=== PATIENT | female | born 1945 ===

== ENCOUNTER → 2019-05-26 | Outpatient (CLI) | payer MEDICARE, BC ==
[2019-05-26 14:00] LABS: HEMOGLOBIN A1C 5.9 % (4.5-6.2)
--- NOTE | 2019-05-28 10:42 | CT ---
INDICATION: Left lower quadrant pain times two weeks, lack of appetite. CT ABDOMEN AND PELVIS WITHOUT CONTRAST: Spiral 2.5 mm axial sections were obtained through the abdomen and pelvis, 05/26/19, with sagittal and coronal reconstructions, no contrast, and compared with 11/04/17. Total exam DLP = 2, 341.14 mGy-cm. An active infiltrate or effusion was not identified in the lower lung luis and pleural spaces visualized. There is some minimal scarring at the lingula and medial anterior middle lobe. The heart did not appear enlarged. No pericardial effusion was seen. There are again noted multiple calculi in the gallbladder without definite evidence of acute cholecystitis. The biliary tree was not dilated. The liver was fairly normal in appearance, except to note a small low density lesion in the left lobe, compatible with a benign cystic structure. The adrenal glands showed evidence of a stable small nodular lesion, most likely benign, since it does appear to be stable compared with a year ago. Scarring is noted of the left kidney, most severe in the posterior upper pole cortex. A mild degree of renal calcinosis is noted with a moderate sized calculus in the lower pole of the left kidney. A small nodular density off the lateral posterior cortex of the left kidney is suggested similar to the previous examination, with similar densities noted on the right at the mid pole. No definite obstructive uropathy was seen. The spleen appeared unremarkable. The pancreas appears to be slightly fatty replaced with some calcification, which appears to be within the splenic artery. Aortic calcifications are noted with proximal renal artery calcifications, superior mesenteric, iliac, and femoral artery calcifications. Thickening of the wall of the urinary bladder was noted, perhaps emphasized by lack of full distention. However, with the degree of thickening present, the likelihood of cystitis is felt to be high. The appendix appeared normal, visualized on axial images #99 through #108 - no evidence of appendicitis is noted. No evidence of free air or bowel obstruction was seen. No retroperitoneal mass was seen. A tiny umbilical hernia is noted, slightly increased in size compared with the previous study and including only fat. Multiple phleboliths are noted in the pelvis. No additional mass lesions organomegaly, or free fluid collections were identified in the abdomen or pelvis. IMPRESSION: 1. Minimal pulmonary fibrosis. 2. Cholelithiasis without definite cholecystitis. 3. ASD with fairly extensive arterial calcifications. At the iliac bifurcation , there is a bulge of the aorta to a maximum of approximately 29 mm - just under aneurysmal dilatation level. 4. Normal appearing appendix. 5. Significant thickening of the urinary bladder wall, most likely on the basis of cystitis and should be correlated clinically. 6. 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 7. Renal cortical scarring on the left, mostly at the lower pole but also in the upper pole on the left with calcification in the lower pole of the kidney, most likely dystrophic from previous infarct or infection at the lower pole. 8. Tiny nodular appearing densities at the kidneys, most likely benign. 9. Osteoarthritic changes with significant craniolateral joint space loss at the hip joints bilaterally, perhaps slightly more severe on the right than left. MTDD
== END ==
LOC: FB.CLBR 12:43
PROVIDERS: ATTEND Nurse Practitioner Family
DX: E11.9 Type 2 diabetes mellitus without complications (principal); R10.32 Left lower quadrant pain; J84.10 Pulmonary fibrosis, unspecified; K80.20 Calculus of gallbladder without cholecystitis without obstruction; Q21.1 Atrial septal defect; N32.89 Other specified disorders of bladder; N28.89 Other specified disorders of kidney and ureter; M16.0 Bilateral primary osteoarthritis of hip; R93.1 Abnormal findings on diagnostic imaging of heart and coronary circulation; I70.0 Atherosclerosis of aorta; M47.815 Spondylosis without myelopathy or radiculopathy, thoracolumbar region; M47.817 Spondylosis without myelopathy or radiculopathy, lumbosacral region; M51.37 Other intervertebral disc degeneration, lumbosacral region; M51.35 Other intervertebral disc degeneration, thoracolumbar region
CPT/HCPCS: 36415; 74176; 80053; 80061; 81001; 83036; 85025; 99214